=== PATIENT | male | born 1945 | race Caucasian/White ===

== ENCOUNTER 2022-12-09 12:26 | Emergency (ER) | payer MEDICARE, MEDICAID, SELFPAY ==
--- NOTE | 2022-12-09 | ECG_ITS ---
Test Reason : MED CLEARANCE Blood Pressure : / mmHG Vent. Rate : 101 BPM Atrial Rate : 101 BPM P-R Int : 138 ms QRS Dur : 118 ms QT Int : 350 ms P-R-T Axes : 033 -72 049 degrees QTc Int : 453 ms Sinus tachycardia Right bundle branch block Left anterior fascicular block Bifascicular block Minimal voltage criteria for LVH, may be normal variant ( R in aVL ) Possible Lateral infarct , age undetermined Abnormal ECG No previous ECGs available Referred By: Ranulfo Mack Electronically Signed By:CONCHA JARA MD
[2022-12-09 12:39] VITALS: BP 122/77; BP 130/88; PULSE 100; PULSE 103; RESP 16; TEMP 36.6; O2SAT 94; BMI 25.0
--- NOTE | 2022-12-09 13:08 | ED.PSYCH ---
HPI - Psych General Chief Complaint: Failure to Thrive Stated Complaint: GEN WEAK PER EMS Time Seen by Provider: 12/09/22 12:57 Source: patient Mode of arrival: EMS Limitations: no limitations History of Present Illness HPI Narrative: 77-year-old male with history of depression, GERD, hypertension, essential tremor who presents emergency department for evaluation of depression, not eating and not drinking for 1 week. Patient states he has been depressed all his life his depression is gotten worse over the last 1-2 weeks. He states he has lost his appetite he has had no food to eat over the last week. He told me ?I do not want to live anymore but I am not suicidal ?. He also stated rotation ?I want to go to sleep and not wake up ?. Patient states that he has lost weight but cannot specify amount. He states that his pants do not fit him in he has had to tightness belt to the last notch. Review systems was negative for fever, chills, rhinorrhea, sore throat, cough, chest pain, shortness of breath, nausea, vomiting, diarrhea, dark stools, bloody stools, frequency, urgency or dysuria. Patient states that he is been noncompliant with his bupropion which he takes for depression. Takes propanolol for hypertension resting tremor. Takes trazodone for insomnia, he states he is having no difficulty sleeping. 14:20 Patient's COVID-19 test was positive. He states that he was sick 1 week prior with cough and sore throat. States the symptoms last 5 days and then resolved. He states that he had at least 2 COVID vaccines and 1 booster, he has not received the most recent COVID vaccine. Related Data Allergies Allergy/AdvReac Type Severity Reaction Status Date / Time No Known Allergies Allergy Verified 12/09/22 12:49 Review of Systems Review of Systems: Yes all other systems are reviewed and are negative PMFSH Past Medical History [facility] Narrative: Past medical history: Hypertension, GERD, depression, resting tremor. Surgical history: Spinal fusion 2009. Social history: He states he lives alone. He denies tobacco, alcohol and drug use. Social History Social History Smoked in Last 30 Days: No Use of substances other than those prescribed or required for medical reasons: No Advance Directives: No Advance Directives Information Provided: No Healthcare Proxy: No Guardian: No Physical Exam Vital Signs: Vital Signs: Last Vital Signs Temp 97.8 F 12/09/22 16:50 Pulse 97 12/09/22 20:08 Resp 18 12/09/22 20:08 BP 126/78 12/09/22 20:08 Pulse Ox 96 12/09/22 20:08 O2 Del Method Room Air 12/09/22 20:08 BMI result Body Mass Index 25.0 Vital signs revealed an elevated heart rate of 103 otherwise unremarkable Exam: General: Awake, alert in no distress, he does cry when he talks about his situation, does have a strong , ketotic breath Head: Normocephalic, atraumatic EENT: PERRL, Lids normal, sclera normal, conjunctiva normal, nose normal , ears normal, throat without erythema or exudates Neck: Supple, no adenopathy, no trachea midline or C-spine tenderness Lung: breath sounds symmetric, no wheezing, rales or rhonchi Chest: symmetric movement, nontender Heart: regular rate and rhythm, normal S1, S2 no murmurs or rubs Abdomen: soft, non-tender, nondistended, normal bowel sounds Back: no vertebral tenderness, no CVAT Extremities: no deformities, moves all extremities symmetrically Skin: no rashes, no lesion, normal color and warmth Neuro: Awake, alert, oriented, normal speech, cranial nerves intact, moves all extremities symmetrically Psych: Pleasant, cooperative, has periods where he cries when he talks about his depression and loneliness. Medications Administered Discontinued Medications Generic Name Dose Route Start Last Admin Trade Name Freq PRN Reason Stop Dose Admin Sodium Chloride 1,000 mls @ 999 mls/hr 12/09/22 13:08 12/09/22 14:48 Ns IV 12/09/22 14:08 Infused .Q1H1M STA Infusion Sodium Chloride 1,000 mls @ 999 mls/hr 12/09/22 14:22 12/09/22 16:16 Ns IV 12/09/22 15:22 Infused .Q1H1M STA Infusion Medical Decision Making Medical Decision Making MDM Narrative: 77-year-old male with history of hypertension, GERD, depression, essential tremor who presents emergency department for evaluation of increased depression over the last 1-2 weeks, loss of appetite with poor food intake over the past week, noncompliance with his bupropion for his depression who states that he is very depressed, he did make statements about not wanting to live anymore but he denied being suicidal he does not have a plan to harm himself. Patient states he has never tried to harm himself in the past and he has no plans to kill himself at this point. Patient's vital signs did reveal an elevated heart rate, he does have a strong ketotic odor to his breath which is most likely secondary to starvation ketosis and consists with him not eating. The following evaluation was ordered: CBC, CMP, lipase, urine drug screen, ethanol level, COVID-19, influenza, TSH with reflex free T4 and urinalysis. I ordered normal saline x1 L. 14:21 Patient's laboratory evaluation revealed an elevated H&H which is most likely caused by hemoconcentration, has a low bicarb but he does have ketones which is most likely caused by starvation ketosis and not diabetic ketoacidosis. The patient's COVID-19 test is positive that he was sick 1 week prior and the symptoms resolved after 5 days. He did have 2 COVID vaccines and 1 booster. At this time, the patient has no concerning symptoms such as fever, chills, cough and I suspect his COVID infection is resolved and his test is still positive which can sometimes remained positive for several weeks after an acute infection. Patient was encouraged to drink fluid and try to eat some food. At this point the patient is medically cleared for crisis evaluation for his depression and suicidal ideation. 20:40 Start physician observation The patient was evaluated by care team and he will be a voluntary inpatient bed search. Patient will be kept in the emergency department until disposition can be determined or until his symptoms improve over time. 21:49 Continue physician observation. At the end of my shift, patient is still waiting for a disposition/bed Patient's care was turned over to my colleague Dr. Darshan Mack. Differential Diagnosis Differential Diagnoses: The differential diagnosis associated with the presentation includes Differential diagnosis includes was not limited to depression, anxiety, noncompliance with medications, suicidal ideation, starvation ketosis, malnutrition, dehydration Admission/Observation Consideration of admission/observation: Escalation of care including admission/observation considered Lab Data MDM Lab Attestation statement: I reviewed the patient's lab results. My independent interpretation patient's laboratory evaluation as follows: Elevated H&H 19.2 and 55.5-consistent with hemoconcentration. Elevated glucose 139. Low bicarb 19. Elevated beta hydroxybutyrate 5.3. COVID-19 positive . U tox was negative. Ethanol level was below detectable limits. Urinalysis was negative except for protein, microscopic negative for infection. 12/09/22 13:42 12/09/22 13:42 Labs: Lab Results 12/09/22 12/09/22 Range/Units 13:42 16:53 WBC 8.6 (4.8-10.8) X10*3/uL RBC 6.41 H (4.60-5.80) X10*6/uL Hgb 19.2 H (14.0-18.0) g/dl Hct 55.5 H (42.0-52.0) % MCV 86.6 (80.0-98.0) fL MCH 30.0 (27.0-33.0) pg MCHC 34.6 (31.0-36.0) g/dl RDW 13.2 (11.0-16.0) % Plt Count 293 (160-400) X10*3/uL MPV 8.4 L (9.4-12.4) fL Immature Gran % (Auto) 0.4 (0.0-0.4) % Neut % (Auto) 65.1 (45-73) % Lymph % (Auto) 24.9 (20-40) % [place] % (Auto) 9.1 (2-11) % Eos % (Auto) 0.1 (0-4) % Baso % (Auto) 0.4 (0-2) % Lymph # (Auto) 2.1 (1.2-4.9) X10*3/uL [place] # (Auto) 0.8 (0.1-1.2) X10*3/uL Eos # (Auto) 0.0 (0.0-0.4) X10*3/uL Baso # (Auto) 0.0 (0.0-0.2) X10*3/uL Abs Immat Gran (auto) 0.03 (0.00-0.03) X10*3/uL Absolute Neuts (auto) 5.6 (2.0-8.3) x10*3/uL Absolute Nucleated RBC 0.000 (0.0-0.012) X10*3/uL Nucleated RBC % (auto) 0.0 (0.0-0.2) /100WBC Sodium 138 (135-145) mmol/L Potassium 3.9 (3.3-5.1) mmol/L Chloride 103 (96-108) mmol/L Carbon Dioxide 19 L (22-29) mmol/L Anion Gap 20 (12-20) BUN 16 (9-16) mg/dL Creatinine 1.26 (0.5-1.4) mg/dL Estim Creat Clear Calc 46.6 Estimated GFR 56 Random Glucose 139 H (60-115) mg/dL Calcium 9.9 (8.4-10.2) mg/dL Total Bilirubin 1.1 H (0.0-1.0) mg/dL AST 38 H (5-37) U/L ALT 34 (0-40) U/L Alkaline Phosphatase 53 (39-117) U/L Total Protein 7.7 (6.5-8.0) g/dL Albumin 4.0 (3.5-5.0) g/dL Lipase 4 L (8-78) U/L Beta-Hydroxybutyrate 5.31 H (0.02-0.27) mmol/L TSH 0.61 (0.32-4.0) uIU/mL Urine Color Yellow Urine Appearance Clear Urine pH 5.5 (5.0-9.0) Ur Specific [place] 1.020 (1.005-1.025) Urine Protein 30 (1+) H (Neg-Trace) mg/dL Urine Glucose (UA) Negative (Negative) mg/dL Urine Ketones >=160 (Negative) mg/dL Urine Blood Negative (Negative) Urine Nitrite Negative (Negative) Ur Leukocyte Esterase Negative (Negative) Urine RBC 0-2 (0-2) /HPF Urine WBC 0-5 (0-5) /HPF Ur Squamous Epith Cells 0-2 (0-2) /HPF Urine Bacteria None Seen (None Seen) Hyaline Casts 6-10 (0-2) /LPF Urine Opiates Screen Not Detected (Not Detect) Urine Fentanyl Screen Not Detected (Not Detect) Ur Barbiturates Screen Not Detected (Not Detect) Ur Phencyclidine Scrn Not Detected (Not Detect) Ur Amphetamines Screen Not Detected (Not Detect) U Benzodiazepines Scrn Not Detected (Not Detect) Urine Cocaine Screen Not Detected (Not Detect) U Marijuana (THC) Screen Not Detected (Not Detect) Ethyl Alcohol < 10 mg/dL COVID-19 (ZULMA) Positive A (Negative) COVID-19 Clin Com See Note Influenza Type A (MIKE) Negative (Negative) Influenza Type B (MIKE) Negative (Negative) Influenza A & B Note See Note Discharge Plan Discharge Clinical Impression: Depression with suicidal ideation, Anorexia, Ketosis, COVID-19 virus infection Patient Disposition: Still a Patient
[2022-12-09] MEDS: 0.9 % Sodium Chloride 1,000 ML 999 ML IV ×2 (13:34→14:51)
[2022-12-09 13:47] LABS: MANUAL DIFF FLAG NO
[2022-12-09 13:48] LABS: Basophils Percent Auto 0.4 % (0-2); Eosinophils Percent Auto 0.1 % (0-4); Hemoglobin 19.2 g/dl (14.0-18.0); Imm Gran Abs Auto 0.03 X10*3/uL (0.00-0.03); Imm Gran Pct Auto 0.4 % (0.0-0.4); Lymphocytes Absolute Auto 2.1 X10*3/uL (1.2-4.9); Lymphocytes Percent Auto 24.9 % (20-40); Mean Corpuscular HGB Conc 34.6 g/dl (31.0-36.0); Mean Corpuscular Volume 86.6 fL (80.0-98.0); Mean Platelet Volume 8.4 fL (9.4-12.4); Monocytes Absolute Auto 0.8 X10*3/uL (0.1-1.2); Monocytes Percent Auto 9.1 % (2-11); Neutrophils Absolute Auto 5.6 x10*3/uL (2.0-8.3); Neutrophils Percent Auto 65.1 % (45-73); Platelet Count 293 X10*3/uL (160-400); Red Blood Count 6.41 X10*6/uL (4.60-5.80); Red Cell Distribution Width 13.2 % (11.0-16.0); White Blood Count 8.6 X10*3/uL (4.8-10.8)
[2022-12-09 13:51] LABS: Hematocrit 55.5 % (42.0-52.0)
[2022-12-09 13:57] LABS: COVID-19 Test Positive (Negative); IDNOW Serial# BCCEAD1C
[2022-12-09 14:04] LABS: IDNOW Serial# 08D9AD1C; Influenza A Negative (Negative); Influenza B2 Negative (Negative)
[2022-12-09 14:05] LABS: Alanine Aminotransferase 34 U/L (0-40); Alkaline Phosphatase 53 U/L (39-117); Anion Gap 20 (12-20); Aspartate Amino Transferase 38 U/L (5-37); Beta-Hydroxybutyrate 5.31 mmol/L (0.02-0.27); Bilirubin Total 1.1 mg/dL (0.0-1.0); Blood Urea Nitrogen 16 mg/dL (9-16); Calcium 9.9 mg/dL (8.4-10.2); Carbon Dioxide 19 mmol/L (22-29); Chloride 103 mmol/L (96-108); Creatinine Clr Calc Pharmacy 46.6; Estimated Glomerular Filt Rate 56; Glucose Random 139 mg/dL (60-115); Lipase 4 U/L (8-78); Potassium 3.9 mmol/L (3.3-5.1); Sodium 138 mmol/L (135-145); Total Protein 7.7 g/dL (6.5-8.0)
[2022-12-09 14:19] LABS: Ethanol < 10 mg/dL
[2022-12-09 14:26] LABS: TSH reflex Free T4 0.61 uIU/mL (0.32-4.0)
--- NOTE | 2022-12-09 15:24 | MHC.CARE ---
med surg rn aware Pt needs UA prior to CARE Team assessment.
[2022-12-09 16:50] VITALS: BP 147/96; PULSE 95; RESP 18; TEMP 36.6; O2SAT 97
[2022-12-09 17:02] LABS: Appearance Urine Clear; Color Urine Yellow; Glucose Urine UA Negative (Negative); Leukocyte Esterase Urine Negative (Negative); Nitrite Urine Negative (Negative); PH 5.5 (5.0-9.0); UMIC TRIGGER UACC YES; Urine Blood Negative (Negative); Urine Ketones >=160 mg/dL (Negative); Urine Protein 30 (1+) mg/dL (Neg-Trace)
[2022-12-09 17:10] LABS: Amphetamine Screen Urine Not Detected (Not Detect); Barbiturates, Urine Not Detected (Not Detect); Benzodiazepines Screen Urine Not Detected (Not Detect); Cannabinoid Screen Urine Not Detected (Not Detect); Cocaine Screen Urine Not Detected (Not Detect); Fentanyl, urine Not Detected (Not Detect); Opiate Screen Urine Not Detected (Not Detect); Phencyclidine Screen Urine Not Detected (Not Detect)
[2022-12-09 17:14] LABS: Bacteria Urine None Seen (None Seen); RBC Urine 0-2 /HPF (0-2); Squamous Epithelial Cell Urine 0-2 /HPF (0-2); WBC Urine 0-5 /HPF (0-5)
[2022-12-09 20:08] VITALS: BP 126/78; PULSE 97; RESP 18; O2SAT 96
--- NOTE | 2022-12-09 20:27 | MHC.EDTECH ---
pt was two assited to the commode to try make a bowel movement.
--- NOTE | 2022-12-09 20:32 | MHC.EDTECH ---
pt made a small bowel movement and was assisted back to bed. pt is now resting comfortably in bed
--- NOTE | 2022-12-09 21:56 | PC.NURSE ---
Addendum entered by Rosalina Rivera 12/09/22 22:02: Care team made aware and at bedside speaking with Pt. Original Note: Pt upset, yelling why am I not upstairs its been nine hours, this is like a nazi concentration camp, I am going to call to get a ride. Pt reassured and not redirectable.
--- NOTE | 2022-12-09 22:29 | MHC.CARE ---
CARE Team assistance requested, as pt is demanding to leave the ED. Pt has no ride home and is demanding to walk home to [place]. Presentation is markedly changed from initial assessment, possible sun downing. Mood is labile with moments of gratitude, tearfulness and agitation. Further assessment for cognitive changes is recommended to take place tomorrow, such as a moca. Plan has changed from voluntary bedsearch to section 12 bedsearch.
--- NOTE | 2022-12-09 22:40 | MHC.EDTECH ---
Pt changed over and assisted to bed, room 2, belongings bag and cane in locker #2. Walker at bedside.
[2022-12-09] MEDS: traZODone HCL 50 MG TABLET PO (23:18)
--- NOTE | 2022-12-10 00:32 | PC.NURSE ---
Patient in bed appears sleeping, no distress observed/reported at this time, coherent, mood depressed/affect flat, medication compliant, disposition per care team is section 12 inpatient bed search, EKG completed/patient compliant, labs completed/resulted/reviewed, VSS, COVID+ /precaution is in place/compliant with precaution protocol, behavior non concerning, ambulates safely with walker but patient is fall risk, will continue to monitor.
[2022-12-10 05:57] VITALS: RESP 16
[2022-12-10] MEDS: Omeprazole 20 MG CAPSULE.DR PO (06:24)
--- NOTE | 2022-12-10 07:03 | PC.NURSE ---
patient appears to be resting at present, received some medication upon awakening from prior rn, patient appears in no distress, patient awaits placement with inpatient bed.
[2022-12-10 08:17] VITALS: BP 112/53; PULSE 91; RESP 18; TEMP 36.8; O2SAT 96
[2022-12-10] MEDS: buPROPion HCl XL 300 MG TAB.ER.24H PO (08:46)
[2022-12-10] MEDS: Propranolol HCL 40 MG TABLET PO ×2 (08:46→20:50)
--- NOTE | 2022-12-10 11:28 | PHA.MEDREC ---
Pharmacy Consult ? Medication Reconciliation Pharmacy has reviewed the medication reconciliation completed by Erasmo.
[2022-12-10 18:12] LABS: COVID-19 Test Positive (Negative); IDNOW Serial# BCCEAD1C
[2022-12-10 20:23] VITALS: BP 120/69; PULSE 93; RESP 17; TEMP 36.6; O2SAT 98
[2022-12-10] MEDS: traZODone HCL 50 MG TABLET PO (20:50)
[2022-12-11] MEDS: Omeprazole 20 MG CAPSULE.DR PO (05:39)
[2022-12-11 09:24] LABS: IDNOW Serial# 9DB6401D
[2022-12-11 09:25] LABS: COVID-19 Test Positive (Negative)
[2022-12-11] MEDS: Propranolol HCL 40 MG TABLET PO ×2 (10:36→22:06)
[2022-12-11] MEDS: buPROPion HCl XL 300 MG TAB.ER.24H PO (10:36)
[2022-12-11 14:16] VITALS: RESP 18
[2022-12-11 14:34] VITALS: BP 136/66; PULSE 57; RESP 16; TEMP 37.2; O2SAT 96
--- NOTE | 2022-12-11 16:20 | PC.NURSE ---
PT in bed resting for most of the shift. Medication compliant, No behavioral concerns. Covid + with precautions in place. Flat when engaged but calm and cooperative. Ambulates slow and steady with a walker. Fall risk. Appetite good. PT is an inpatient bed search and is aware of the plan.
[2022-12-11 21:47] VITALS: BP 165/83; PULSE 72; RESP 17; TEMP 36.4; O2SAT 96
[2022-12-11] MEDS: traZODone HCL 50 MG TABLET PO (22:06)
[2022-12-12] MEDS: Omeprazole 20 MG CAPSULE.DR PO (06:04)
--- NOTE | 2022-12-12 06:10 | PC.NURSE ---
Patient slept through the night, no distress observed/reported, mood pleasant, behavior non concerning, medication compliant, disposition per care team is section 12 inpatient bed search, labs completed/resulted/reviewed, VSS, COVID+ /precaution is in place/compliant with precaution protocol, ambulates safely with walker but patient is fall risk, will continue to monitor.
[2022-12-12 06:11] VITALS: BP 121/69; PULSE 62; RESP 17; TEMP 36.8; O2SAT 96
--- NOTE | 2022-12-12 07:09 | PC.NURSE ---
patient appears to remain asleep at present respirations are even and unlabored patient appears in no distress
[2022-12-12] MEDS: buPROPion HCl XL 300 MG TAB.ER.24H PO (08:35)
[2022-12-12] MEDS: Propranolol HCL 40 MG TABLET PO ×2 (08:35→21:03)
[2022-12-12 11:43] LABS: COVID-19 Test Positive (Negative); IDNOW Serial# BCCEAD1C
--- NOTE | 2022-12-12 14:09 | MHC.CARE ---
Pt cleared by CARE team and refereed to case management.
--- NOTE | 2022-12-12 17:21 | PC.NURSE ---
Patient transferred from POD to overflow. Patient alert and oriented. Denies pain or discomfort. Denies SI or HI. Spoke with son on phone, ate well for dinner. Patient ambulating with wheeled walker, gait steady.
[2022-12-12 18:38] VITALS: PULSE 77; RESP 18; TEMP 36.7; O2SAT 98
[2022-12-12] MEDS: traZODone HCL 50 MG TABLET PO (21:03)
[2022-12-13 06:00] VITALS: BP 117/55; PULSE 63; RESP 18; TEMP 36.2; O2SAT 97
[2022-12-13] MEDS: buPROPion HCl XL 300 MG TAB.ER.24H PO (08:31)
[2022-12-13] MEDS: Propranolol HCL 40 MG TABLET PO ×2 (08:31→21:47)
[2022-12-13] MEDS: Omeprazole 20 MG CAPSULE.DR PO (08:31)
[2022-12-13 08:35] VITALS: BP 135/63; PULSE 63; O2SAT 95
--- NOTE | 2022-12-13 10:01 | MHC.CM.ED ---
Addendum entered by Brynn Adkins 12/13/22 15:02: Per Yogesh RN, patient ate 75% of breakfast and 100% of lunch. Original Note: Received case management consult from Alize ESQUIVEL. Patient came to the ER due to generalized weakness. Patient was a section 12 due to depression symptoms. Patient was originally recommended for inpatient psych but was cleared by Care Team. Patient tested positive for Covid on 12/09. Per Lyssa of Care Team, patient doesn't feel he can be at home anymore and is interested in prison care. He would prefer to be in the [place] area because his sons live there. Attempted to meet with patient in regards to discharge planning. Patient is currently sleeping. Spoke with patient's son, Adán, via telephone at [phone]. Adán is aware patient is positive for Covid. Also aware LTC placement is being pursued in [facility]. Adán does not have a facility preference and is agreeable to referral being broadcasted. Adán and his brothers are in different parts of [place]. Adán would be agreeable to a referral 40 miles from [place] if it would be easier for patient's placement. Referral broadcasted in [employer]. Patient could potentially be in the ER until Covid recovered on 12/20. No HCP at [facility], PCP's office or [facility]. Continue to monitor for d/c needs.
--- NOTE | 2022-12-13 11:13 | PC.NURSE ---
PT ALERT AND ORIENTED, VSS, DENIES PAIN. PT DENIES SI/HI. PT UP INDEPENDENTLY TO BATHROOM. MEDS GIVEN ORDERED. NO COMPLAINTS.
[2022-12-13 11:14] VITALS: O2SAT 95
--- NOTE | 2022-12-13 14:53 | PC.NURSE ---
Assumed care of patient at 1445, patient resting on bed at this time, respirations even and unlabored, skin pwd, no apparent distress
--- NOTE | 2022-12-13 15:51 | MHC.OT.IE ---
[address] [phone] F: [phone] Occupational Therapy Inpatient Evaluation Patient Name: Patrice Diehl History Diagnosis: DEPRESSION History of Current Condition: 77 y.o. PRESENTED TO ER WITH INCREASED DEPRESSION, NOT EATING/DRINKING X 1wk. Pt COVID (+), NO LONGER SYMPTOMATIC, HAD BEEN LAST WEEK. PMHx: DEPRESSION, GERD, HTN, ESSENTIAL TREMOR, SPINAL FUSION. Medical History Reviewed: Yes Precautions: Contact Droplet Airborne Precautions Comments: COVID Social History History Obtained By: Patient Lives With: alone Type of Dwelling: apartment Number of Floors: Number of Stairs to Enter: Living Situation Comment: RESIDING IN AN APARTMENT ALONE. 1 STEP WITH RAIL TO ENTER Adaptive Equipment Owned: Adaptive Equipment Comment: CANE W/WALKER Prior Level of Function: AMBULATING WITH CANE, REPORTS HAVING A W/WALKER FROM AFTER HIS SPINAL FUSION SURGERY. INDEPENDENT WITH SELF-CARE AND ADLs. Pain Assessment Pain Score: Pain Scale Used: Pain Location and Description: Comment: Current Condition Behavior and Communication Alertness: Alert Orientation: Person Place Date Situation Safety Awareness: Cognition Comments: Pt scored a 4.8 on the [employer] Cognitve Level screen which is on the cusp of mild to moderate cognitive functional deficits. After clinical observation, interview and assessment this clinician believes cognitive functional status to be mildly impaired. Pt scored a 24/30 on the MOCA indicating mild cognitive impairment. Pt states I've given up and reports increasing limitations on his independence, mobility and meaning and purpose in life. Vision: WFL Hearing: WFL Coordination Finger to Nose: Finger Opposition: Rapid Alternating Movement: Comments: Sensory Assessment Light Touch: Localization: Proprioception: Temperature: Stereognosis: Comments: Musculoskeletal Upper Extremity ROM: WFL Upper Extremity Strength: WFL Balance Static Sitting: Dynamic Sitting: Static Standing: Dynamic Standing: Comments: Self-Care Feeding: Grooming: Upper Body Bathing: Lower Body Bathing: Upper Body Dressing: Lower Body Dressing: Toileting: IADL/Home Care: Comments: Bed Mobility Assistive Device: Rolling: Supine to Sit: Sit to Supine: Comments: Transfers Assistive Device: Transfer Type: Transfer Destination: Transfer Ability: Comments: Functional Mobility Assistive Device: Ambulation Distance: Ambulation Ability: Comments: Plan of Care Rehab Potential: Assessment: Problem List: Treatment Plan: Goals: Goals Set with Patient: Frequency and Duration: Equipment Needed: Discharge Plan: Discharge Plan Comment: Discharge Today: Electronically Signed By: Flower Duff OTR/Vazquez Reviewed/agree with student documentation: Therapist:
--- NOTE | 2022-12-13 18:40 | PC.NURSE ---
pt is resting comfortably on stretcher, respirations even and unlabored, no apparent distress. Pt offers no complaints to this RN. Up eating dinner at this time
[2022-12-13 18:41] VITALS: PULSE 88; RESP 16; O2SAT 97
[2022-12-13 19:33] VITALS: BP 151/70; PULSE 59; RESP 18; TEMP 36.6; O2SAT 97
[2022-12-13] MEDS: traZODone HCL 50 MG TABLET PO (21:47)
--- NOTE | 2022-12-13 22:00 | PC.NURSE ---
This telegraphic typewriter installer assumed care of this Pt at 1900. Pt awake sitting in hospital bed, denies any pain. Pt medicated per APR. Ambulated with staff stand by to
--- NOTE | 2022-12-14 05:17 | PC.NURSE ---
Pt appears to be sleeping respirations are equal and unlabored.
[2022-12-14 06:08] VITALS: BP 149/67; PULSE 57; RESP 16; TEMP 36.2; O2SAT 95
--- NOTE | 2022-12-14 09:16 | PC.NURSE ---
pt resting with eyes closed, respirations even and unlabored.
--- NOTE | 2022-12-14 09:56 | MHC.CM.ED ---
Review of LTC referrals note several centers interested once pt has been COVID cleared on 12/20. [facility] in [place], [place] has indicated acceptance once recovered. . ED CM to follow.
[2022-12-14] MEDS: buPROPion HCl XL 300 MG TAB.ER.24H PO (10:26)
[2022-12-14] MEDS: Omeprazole 20 MG CAPSULE.DR PO (10:26)
[2022-12-14] MEDS: Propranolol HCL 40 MG TABLET PO ×2 (10:26→21:18)
--- NOTE | 2022-12-14 10:33 | PC.NURSE ---
pt ate breakfast, took morning meds. reports feeling good today. pt reports his son will be by later to visit. no complaints at this time.
--- NOTE | 2022-12-14 12:52 | MHC.EDTECH ---
Patient set up to eat lunch.
[2022-12-14 14:45] VITALS: BP 136/61; PULSE 64; RESP 16; TEMP 36.9; O2SAT 98
--- NOTE | 2022-12-14 18:10 | PC.NURSE ---
pt resting in bed, pt with no complaints, NAD. had a visit from his son which he reports went well. pt continues to await LTC facility
--- NOTE | 2022-12-14 19:44 | PC.NURSE ---
I assumed care of the pt at 1900. Pt resting quietly in bed at this time, pt has no complaints at this time. Pt ate his dinner and is now resting comfortably in bed. Pt is PT/CM, waiting dispo at this time.
[2022-12-14] MEDS: traZODone HCL 50 MG TABLET PO (21:18)
[2022-12-14 21:20] VITALS: BP 128/68; PULSE 62; RESP 16; TEMP 36.5; O2SAT 95
--- NOTE | 2022-12-15 05:27 | PC.NURSE ---
Pt has been resting comfortably in bed throughout the night. Pt has gotten up to go to the bathroom independently with his cane. Pt has had no complaints during the night.
[2022-12-15 06:31] VITALS: BP 136/68; PULSE 61; RESP 14; TEMP 37; O2SAT 96
[2022-12-15] MEDS: Omeprazole 20 MG CAPSULE.DR PO (07:10)
--- NOTE | 2022-12-15 07:40 | PC.NURSE ---
PT IS A/O X 4 NO SOB/DUY NOTED SPEAKS IN FULL SENTENCES. PT'S ERYN GROIN AREA - FUNGAL INFECTION NOTED. RAISED OPENED AREAS WITH A VERY UNPLEASANT ODOUR WHICH PT STATES IS VERY PAINFUL 09/26. PT SEEN BY MD PT IS AWARE OF PLAN OF CARE.
[2022-12-15 07:45] VITALS: BP 124/58; PULSE 60; RESP 18; TEMP 36.8; O2SAT 92
[2022-12-15] MEDS: Propranolol HCL 40 MG TABLET PO ×2 (08:01→20:55)
[2022-12-15] MEDS: buPROPion HCl XL 300 MG TAB.ER.24H PO (08:01)
--- NOTE | 2022-12-15 08:05 | PC.NURSE ---
PT IS A/OX 3 NO SOB/DUY NOTED SPEAKS IN FULL SENTENCES. NO C/O PAIN /DISC. NO EDEMA NOTED. C/O 2/10 LOWER BACK PAIN. PT AWARE OF PLAN OF CARE.
--- NOTE | 2022-12-15 09:48 | PC.NURSE ---
this RN resumed care of pt at this time. tech was able to ambulate pt to overflow where he was able to take a shower/clean himself up. per tech - pt did well and had no difficulties. pt now resting in bed comfortably in no apparent distress/sleeping. respirations even and unlabored. call grigsby placed within reach.
[2022-12-15 10:40] VITALS: BP 139/71; PULSE 58; RESP 16; TEMP 37; O2SAT 96
--- NOTE | 2022-12-15 10:41 | PC.NURSE ---
pt awake from nap. a&ox3, vss and up to date. pt denies SI/HI at this time. pt states he feels much better after being able to shower. pt c/o no pain at this time. resting comfortably in bed in no apparent distress. respirations remain even and unlabored. call grigsby placed within reach.
--- NOTE | 2022-12-15 13:27 | PC.NURSE ---
pt resting comfortably eating lunch at this time. respirations remain even and unlabored. call grigsby placed within reach.
[2022-12-15 14:00] VITALS: BP 139/68; PULSE 59; RESP 64; O2SAT 94
--- NOTE | 2022-12-15 15:33 | PC.NURSE ---
pt continues to rest in no apparent distress at this time. pt resting comfortably in bed. vss and up to date. respirations remain even and unlabored. call grigsby placed within reach.
[2022-12-15 18:48] VITALS: BP 163/74; PULSE 75; RESP 16; TEMP 36.9; O2SAT 92
--- NOTE | 2022-12-15 18:51 | PC.NURSE ---
vss and up to date. pt denies SI/HI at this time. pt currently resting comfortably in bed in no apparent distress eating dinner. respirations remain even and unlabored. call grigsby placed within reach.
[2022-12-15 20:48] VITALS: BP 146/76; PULSE 68; TEMP 36.9
[2022-12-15] MEDS: traZODone HCL 50 MG TABLET PO (20:55)
--- NOTE | 2022-12-15 21:20 | PC.NURSE ---
assumed care of pt , pt calm and cooperative
[2022-12-16 05:44] VITALS: BP 132/63; PULSE 76; RESP 17; TEMP 36.7; O2SAT 96
[2022-12-16 08:02] VITALS: BP 125/55; PULSE 61
[2022-12-16] MEDS: buPROPion HCl XL 300 MG TAB.ER.24H PO (08:03)
[2022-12-16] MEDS: Propranolol HCL 40 MG TABLET PO ×2 (08:03→20:32)
[2022-12-16 11:30] VITALS: BP 142/75; PULSE 63; RESP 12; TEMP 36.4; O2SAT 92
--- NOTE | 2022-12-16 11:55 | PC.NURSE ---
patient a&ox3, vss, pt ambulating with steady gait with cane, pt deines pain/discomfort, call grigsby within reach, will continue to monitor.
[2022-12-16 14:00] VITALS: BP 138/76; PULSE 68; RESP 18; TEMP 36.7; O2SAT 92
--- NOTE | 2022-12-16 16:51 | PC.NURSE ---
patient a&ox3, vss, pt denies pain at this time, ambulates independently with steady gait with cane, eating dinner at this time, call grigsby within reach, will continue to monitor
[2022-12-16] MEDS: traZODone HCL 50 MG TABLET PO (20:32)
--- NOTE | 2022-12-16 21:32 | PC.NURSE ---
pt assessed, oob to the BR with his cane, steady gait, denies any complaints
[2022-12-17 00:09] VITALS: BP 99/41; PULSE 64; RESP 18; TEMP 36.2; O2SAT 92
[2022-12-17 06:00] VITALS: BP 137/65; PULSE 57; RESP 18; TEMP 36.6; O2SAT 92
[2022-12-17] MEDS: Omeprazole 20 MG CAPSULE.DR PO (06:22)
[2022-12-17] MEDS: buPROPion HCl XL 300 MG TAB.ER.24H PO (08:36)
[2022-12-17] MEDS: Propranolol HCL 40 MG TABLET PO ×2 (08:36→20:30)
[2022-12-17 10:30] LABS: COVID-19 Test Negative (Negative); IDNOW Serial# 9DB6401D
--- NOTE | 2022-12-17 11:32 | MHC.CM.ED ---
Addendum entered by Brynn Adkins 12/17/22 14:15: It unsafe for patient to return home at this time due to physical mobility. Patient lives in [facility] and was able to ambulate to the center of [facility] to get all of his needs met. Patient is unable to safely ambulate out of the building due to gross deconditioning and failure to thrive. Patient lives alone. Placement is required at this time in order to create a safe d/c plan for patient. All 3 of his sons live in the [facility]. He doesn't have family local to him at this time. He has tried getting services in his home but hasn't been able to find/keep help. Original Note: Patient remains in ER overflow. HCP completed, signed and witnessed. Original given to patient. [facility] is requesting repeat Covid test. Repeat test done. Today's result are negative. Sent to [facility] via [facility]. Continue to monitor for d/c needs.
[2022-12-17 14:00] VITALS: BP 124/71; PULSE 60; RESP 18; TEMP 36.3; O2SAT 90
--- NOTE | 2022-12-17 14:26 | PC.NURSE ---
Pt A/Ox4, pleasant. Repeat covid swab negative. Ambulates independently with cane. Awaiting dispo plan
--- NOTE | 2022-12-17 15:43 | MHC.CM.ED ---
[facility] is able to offer a bed. Patient can leave tomorrow 12/18 at 9am. Wilbur KESSLER booked. Med nec with chart. Patient agreeable to d/c plan. T/W spoke with Adán via telephone at [phone]. Adán agreeable to d/c plan. Adán will pass this info onto his brothers Remberto and Osmel. Patient, Kellee REINA and Britni ESQUIVEL aware. Continue to monitor for d/c needs.
--- NOTE | 2022-12-17 19:09 | PC.NURSE ---
Assumed care of pt. Pt lying on stretcher, watching television. No acute distress at this time. Continuing plan of care, with preparation for discharge in am.
[2022-12-17] MEDS: traZODone HCL 50 MG TABLET PO (20:30)
[2022-12-17 22:00] VITALS: BP 125/65; PULSE 58; RESP 16; TEMP 36.6; O2SAT 92
--- NOTE | 2022-12-17 23:46 | PC.NURSE ---
Assumed care of PT at 2300. PT alert and oriented, calm copperative and in no acute distress.Pt reports having anxiety about transferring to SNF- denies HI/SI at this time. PT used urinal and went back to bed. Call grigsby within reach. Plan of care ongoing.
--- NOTE | 2022-12-18 02:27 | PC.NURSE ---
Assumed care of pt at 2300. PT in hospital bed and appears to be sleeping. Respiration even and unlabored. Pt repositioning self periodically. Video monitoring and bed alarm on.Call grigsby within reach. Plan of care ongoing.
[2022-12-18 06:09] VITALS: BP 126/63; PULSE 58; RESP 18; TEMP 36.2; O2SAT 94
[2022-12-18] MEDS: Omeprazole 20 MG CAPSULE.DR PO (06:11)
--- NOTE | 2022-12-18 06:18 | PC.NURSE ---
PT arousable to name, drowsy and oriented x3. PT denies pain at this time. Medication administered as per APR. Call grigsby within reach. Plan of care ongoing.
--- NOTE | 2022-12-18 08:30 | PC.NURSE ---
PT IS A/O X 3 NO SOB/DUY NOTED SPEAKS IN FULL SENTENCES. AMB (I) GAIT STEAD WITH A CAN AND CONTACT GUARD TO BATHROOM. PT TO BE D[facility]C'D TO [facility] [place] [facility]IA [facility]BULANCE. PT AWARE OF PLAN OF CARE. NO EDEMA NOTED.
[2022-12-18 08:33] VITALS: BP 118/60; PULSE 66; RESP 17; TEMP 36.4; O2SAT 96
[2022-12-18] MEDS: buPROPion HCl XL 300 MG TAB.ER.24H PO (08:35)
[2022-12-18] MEDS: Propranolol HCL 40 MG TABLET PO ×2 (08:35→20:31)
--- NOTE | 2022-12-18 12:09 | MHC.CM.ED ---
Patient was scheduled to transfer to [facility] via BLS today at 9am. [facility] did not receive leveling for [facility] from [facility]. D/C changed to 12/19 at 9am. T/W spoke with Nataly at [facility]. Leveling will be provided to [facility] this afternoon. Patient, son Adán, Katya REINA and Heather ESQUIVEL aware. Continue to monitor for d/c needs.
[2022-12-18 14:00] VITALS: BP 123/70; PULSE 72; RESP 16; TEMP 36.6; O2SAT 94
[2022-12-18] MEDS: traZODone HCL 50 MG TABLET PO (20:31)
[2022-12-18 20:37] VITALS: BP 120/65; PULSE 69
[2022-12-18 22:24] VITALS: BP 120/68; PULSE 67; RESP 18; TEMP 36.9; O2SAT 95
[2022-12-19 03:47] VITALS: BP 105/61; PULSE 59; RESP 16; TEMP 36.3; O2SAT 95
[2022-12-19] MEDS: Omeprazole 20 MG CAPSULE.DR PO (06:18)
[2022-12-19 08:17] VITALS: BP 109/60; PULSE 60; RESP 16; TEMP 36.6; O2SAT 95
[2022-12-19] MEDS: buPROPion HCl XL 300 MG TAB.ER.24H PO (08:19)
[2022-12-19] MEDS: Propranolol HCL 40 MG TABLET PO (08:19)
== END 2022-12-19 09:13 | disposition skilled nursing facility (03) ==
PROVIDERS: Emergency Medicine; Physician Assistant Medical; Social Worker; Emergency Provider Emergency Medicine Emergency Medical Services; PCP Physician Assistant
DX: F33.1 Major depressive disorder, recurrent, moderate (principal); U07.1 COVID-19; R62.7 Adult failure to thrive; R53.1 Weakness; R45.851 Suicidal ideations; R26.2 Difficulty in walking, not elsewhere classified; E88.89 Other specified metabolic disorders; Z11.52 Encounter for screening for COVID-19; Z20.822 Contact with and (suspected) exposure to COVID-19; Z79.899 Other long term (current) drug therapy
CPT/HCPCS: 36415; 80053; 80307; 81001; 81003; 82010; 83690; 84443; 85025; 87502; 87635; 93005; 96360; 96361; 97161; 99285; S9485